=== PATIENT | male | born 1950 | race Caucasian/White ===

== ENCOUNTER 2016-08-31 12:11 | Inpatient (IN) | payer OTHER, MEDICARE ==
[~2016-08-31] VITALS: Ht 177.8 cm; Wt 63.9 kg
[~2016-08-31 12:11] MED LIST: FURO-93 PO; LACT10SO28 PO; MIDO5TAB PO; OMEP-110 PO; PROP20TA PO; SAXA2.5T PO; SODI650T PO; SPIR50TA2 PO; TRAM50TA2 PO; VITA400T6 PO
[2016-08-31] MEDS ORDERED: SODIUM CHLORIDE 0.9% 1,000 ML IV ONE (12:43)
[2016-08-31] MEDS ORDERED: SODIUM CHLORIDE FLUSH 10ML SYR IVF ONE (13:00)
[2016-08-31] MEDS ORDERED: ONDANSETRON 2MG/ML, 2ML IVPush ONE (13:00)
[2016-08-31] MEDS ORDERED: MORPHINE SULFATE 4 MG/ML, 1ML IVPush PRN ×2 (13:00→18:00)
[2016-08-31 13:27] LABS: HEMOGLOBIN 9.3 g/dL (13.7-18.0)
[2016-08-31 13:35] LABS: ASPARTATE AMINO TRANSFERASE 384 U/L (15-37); BLOOD UREA NITROGEN 60 mg/dL (7-18)
[2016-08-31] MEDS ORDERED: VITA400C40 PO (16:20)
[2016-08-31] MEDS ORDERED: MAGN100C2 PO (16:20)
[2016-08-31] MEDS ORDERED: LACTULOSE 20 GM/30 ML UDC PO ONE (17:30)
[2016-08-31] MEDS ORDERED: RIFAXIMIN 550 MG TABLET PO ONE (17:30)
[2016-08-31] MEDS ORDERED: PIPERACILLIN/TAZO/PMX 2.25GM 50 ML IV ONE (17:30)
[2016-08-31] MEDS ORDERED: SODIUM CHLORIDE FLUSH 10ML SYR IVF PRN (17:30)
[2016-08-31] MEDS ORDERED: ONDANSETRON 2MG/ML, 2ML IVP PRN (18:00)
[2016-08-31] MEDS ORDERED: OXYcodone IR 5MG TABLET PO PRN (18:00)
[2016-08-31 20:30] VITALS: BP 90/53
[2016-08-31] MEDS: INSULIN ASPART 100 UNITS/ML, PEN SQ-INSULIN SCH (21:00)
[2016-08-31] MEDS: PIPERACILLIN/TAZO/PMX 2.25GM 50 ML IV SCH (21:37)
[2016-08-31] MEDS: SODIUM CHLORIDE 0.9% 1,000 ML IV SCH (21:37)
[2016-08-31] MEDS: SODIUM BICARBONATE 650 MG TABLET PO SCH (21:39)
[2016-08-31] MEDS: OMEPRAZOLE 20 MG CAPSULE.DR PO SCH (21:39)
[2016-09-01 03:13] VITALS: BP 81/49
[2016-09-01] MEDS: PIPERACILLIN/TAZO/PMX 2.25GM 50 ML IV SCH ×4 (03:13→23:57)
[2016-09-01 05:39] LABS: ASPARTATE AMINO TRANSFERASE 251 U/L (15-37); BLOOD UREA NITROGEN 63 mg/dL (7-18)
[2016-09-01] MEDS: INSULIN ASPART 100 UNITS/ML, PEN SQ-INSULIN SCH ×4 (05:48→23:45)
[2016-09-01 06:35] VITALS: BP 100/65
[2016-09-01 07:03] LABS: HEMOGLOBIN 8.6 g/dL (13.7-18.0)
[2016-09-01] MEDS: SODIUM BICARBONATE 650 MG TABLET PO SCH ×2 (09:47→21:02)
[2016-09-01] MEDS: RIFAXIMIN 550 MG TABLET PO SCH ×2 (09:47→21:02)
[2016-09-01] MEDS: SODIUM CHLORIDE 0.9% 1,000 ML IV SCH (09:48)
[2016-09-01] MEDS: ALBUMIN HUMAN 25% 50 ML IV SCH ×2 (14:09→21:03)
[2016-09-01] MEDS ORDERED: D5%-0.9% NACL 1,000 ML IV SCH (18:30)
[2016-09-01 19:48] VITALS: BP 102/64
[2016-09-01] MEDS: OMEPRAZOLE 20 MG CAPSULE.DR PO SCH (21:02)
[2016-09-01] MEDS: LACTULOSE 10 GM/15 ML UDC PO SCH (23:44)
[2016-09-02] VITALS (13 sets, daily range): BP systolic 93–122; BP diastolic 51–70
[2016-09-02] MEDS: D5%-0.9% NACL 1,000 ML IV SCH (05:07)
[2016-09-02] MEDS: ALBUMIN HUMAN 25% 50 ML IV SCH ×3 (05:08→22:28)
[2016-09-02 05:30] LABS: HEMOGLOBIN 7.3 g/dL (13.7-18.0)
[2016-09-02 05:31] LABS: ASPARTATE AMINO TRANSFERASE 137 U/L (15-37); BLOOD UREA NITROGEN 53 mg/dL (7-18)
[2016-09-02] MEDS: PIPERACILLIN/TAZO/PMX 2.25GM 50 ML IV SCH ×3 (06:50→23:30)
[2016-09-02] MEDS: INSULIN ASPART 100 UNITS/ML, PEN SQ-INSULIN SCH ×4 (08:11→19:53)
[2016-09-02] MEDS: LACTULOSE 10 GM/15 ML UDC PO SCH ×2 (08:11→19:53)
[2016-09-02] MEDS: SODIUM BICARBONATE 650 MG TABLET PO SCH ×2 (08:11→19:55)
[2016-09-02] MEDS: RIFAXIMIN 550 MG TABLET PO SCH ×2 (08:11→19:54)
[2016-09-02] MEDS: OMEPRAZOLE 20 MG CAPSULE.DR PO SCH (19:55)
[2016-09-02] MEDS: MAGNESIUM CHLORIDE 64 MG TABLET.DR PO SCH (22:36)
[2016-09-03] MEDS: PIPERACILLIN/TAZO/PMX 2.25GM 50 ML IV SCH ×4 (00:35→19:14)
[2016-09-03] MEDS: D5%-0.9% NACL 1,000 ML IV SCH (02:42)
[2016-09-03 02:51] VITALS: BP 106/69
[2016-09-03 05:16] LABS: BLOOD UREA NITROGEN 38 mg/dL (7-18)
[2016-09-03 05:19] LABS: ASPARTATE AMINO TRANSFERASE 94 U/L (15-37)
[2016-09-03 05:44] LABS: HEMOGLOBIN 8.8 g/dL (13.7-18.0)
[2016-09-03] MEDS ORDERED: LACTULOSE 10 GM/15 ML UDC PO ONE (07:00)
[2016-09-03 07:45] VITALS: BP 102/63
[2016-09-03] MEDS: MAGNESIUM CHLORIDE 64 MG TABLET.DR PO SCH (08:44)
[2016-09-03] MEDS: INSULIN ASPART 100 UNITS/ML, PEN SQ-INSULIN SCH ×4 (08:44→20:31)
[2016-09-03] MEDS: RIFAXIMIN 550 MG TABLET PO SCH ×2 (08:44→20:31)
[2016-09-03] MEDS: SODIUM BICARBONATE 650 MG TABLET PO SCH ×2 (08:44→20:31)
[2016-09-03] MEDS: LACTULOSE 10 GM/15 ML UDC PO SCH ×2 (12:43→17:43)
[2016-09-03 13:46] VITALS: BP 104/62
[2016-09-03 19:20] VITALS: BP 116/75
[2016-09-03] MEDS: OMEPRAZOLE 20 MG CAPSULE.DR PO SCH (20:31)
[2016-09-03] MEDS: TEMAZEPAM 15 MG CAPSULE PO PRN (20:31)
[2016-09-03] MEDS: LACTULOSE 20 GM/30 ML UDC PO SCH (21:00)
[2016-09-04] MEDS: PIPERACILLIN/TAZO/PMX 2.25GM 50 ML IV SCH ×4 (01:38→19:07)
[2016-09-04 01:43] VITALS: BP 112/62
[2016-09-04 05:11] LABS: ASPARTATE AMINO TRANSFERASE 71 U/L (15-37); BLOOD UREA NITROGEN 28 mg/dL (7-18)
[2016-09-04 07:02] VITALS: BP 104/63
[2016-09-04] MEDS: INSULIN ASPART 100 UNITS/ML, PEN SQ-INSULIN SCH ×4 (08:01→20:59)
[2016-09-04] MEDS: MAGNESIUM CHLORIDE 64 MG TABLET.DR PO SCH (08:02)
[2016-09-04] MEDS: SODIUM BICARBONATE 650 MG TABLET PO SCH ×2 (08:02→20:47)
[2016-09-04] MEDS: RIFAXIMIN 550 MG TABLET PO SCH ×2 (08:02→20:48)
[2016-09-04] MEDS: LACTULOSE 20 GM/30 ML UDC PO SCH (09:00)
[2016-09-04 14:06] VITALS: BP 114/64
[2016-09-04 20:04] VITALS: BP 113/56
[2016-09-04] MEDS: OMEPRAZOLE 20 MG CAPSULE.DR PO SCH (20:47)
[2016-09-04] MEDS ORDERED: LACTULOSE 20 GM/30 ML UDC PO SCH (21:00)
[2016-09-04] MEDS: TEMAZEPAM 15 MG CAPSULE PO PRN (22:19)
[2016-09-05] MEDS: PIPERACILLIN/TAZO/PMX 2.25GM 50 ML IV SCH ×4 (00:52→19:58)
[2016-09-05 02:45] VITALS: BP 105/60
[2016-09-05] MEDS: INSULIN ASPART 100 UNITS/ML, PEN SQ-INSULIN SCH ×4 (07:00→20:14)
[2016-09-05 07:39] VITALS: BP 105/66
[2016-09-05] MEDS: LACTULOSE 20 GM/30 ML UDC PO SCH (08:11)
[2016-09-05] MEDS: MAGNESIUM CHLORIDE 64 MG TABLET.DR PO SCH (08:11)
[2016-09-05] MEDS: RIFAXIMIN 550 MG TABLET PO SCH ×2 (08:12→19:58)
[2016-09-05] MEDS: SODIUM BICARBONATE 650 MG TABLET PO SCH ×2 (08:12→19:58)
[2016-09-05 13:21] VITALS: BP 106/64
[2016-09-05 18:43] VITALS: BP 120/71
[2016-09-05] MEDS: OMEPRAZOLE 20 MG CAPSULE.DR PO SCH (19:58)
[2016-09-05] MEDS: TEMAZEPAM 15 MG CAPSULE PO PRN (22:01)
[2016-09-06] MEDS: PIPERACILLIN/TAZO/PMX 2.25GM 50 ML IV SCH ×4 (01:35→19:39)
[2016-09-06 01:58] VITALS: BP 112/68
[2016-09-06 05:07] LABS: HEMOGLOBIN 9.1 g/dL (13.7-18.0)
[2016-09-06 05:12] LABS: BLOOD UREA NITROGEN 33 mg/dL (7-18)
[2016-09-06 05:15] LABS: ANISOCYTOSIS 1+; ASPARTATE AMINO TRANSFERASE 54 U/L (15-37)
[2016-09-06 05:16] LABS: OVALOCYTES 1+; POIKILOCYTOSIS 1+
[2016-09-06 08:15] VITALS: BP 102/61
[2016-09-06] MEDS: INSULIN ASPART 100 UNITS/ML, PEN SQ-INSULIN SCH ×4 (08:46→21:19)
[2016-09-06] MEDS: MAGNESIUM CHLORIDE 64 MG TABLET.DR PO SCH (08:48)
[2016-09-06] MEDS: SODIUM BICARBONATE 650 MG TABLET PO SCH ×2 (08:48→19:39)
[2016-09-06] MEDS: LACTULOSE 20 GM/30 ML UDC PO SCH ×2 (08:48→19:41)
[2016-09-06] MEDS: RIFAXIMIN 550 MG TABLET PO SCH ×2 (08:49→19:39)
[2016-09-06] MEDS ORDERED: FUROSEMIDE 20 MG TABLET PO SCH (09:00)
[2016-09-06] MEDS ORDERED: FUROSEMIDE 20 MG TABLET PO ONE (11:00)
[2016-09-06 14:00] VITALS: BP 104/65
[2016-09-06] MEDS: MIDODRINE 5 MG TABLET PO SCH ×2 (16:34→19:41)
[2016-09-06 19:12] VITALS: BP 102/63
[2016-09-06] MEDS: OMEPRAZOLE 20 MG CAPSULE.DR PO SCH (19:39)
[2016-09-06] MEDS: ALBUMIN HUMAN 25% 100 ML IV SCH (21:19)
[2016-09-06] MEDS: TEMAZEPAM 15 MG CAPSULE PO PRN (22:21)
[2016-09-07] MEDS: PIPERACILLIN/TAZO/PMX 2.25GM 50 ML IV SCH ×3 (00:38→14:44)
[2016-09-07 01:45] VITALS: BP 98/59
[2016-09-07 05:17] LABS: HEMOGLOBIN 8.1 g/dL (13.7-18.0)
[2016-09-07 05:24] LABS: ASPARTATE AMINO TRANSFERASE 48 U/L (15-37); BLOOD UREA NITROGEN 36 mg/dL (7-18)
[2016-09-07 05:37] LABS: ANISOCYTOSIS 1+; OVALOCYTES 1+; POIKILOCYTOSIS 1+
[2016-09-07] MEDS: ALBUMIN HUMAN 25% 100 ML IV SCH ×4 (05:39→16:34)
[2016-09-07] MEDS: INSULIN ASPART 100 UNITS/ML, PEN SQ-INSULIN SCH ×3 (07:00→16:00)
[2016-09-07 08:00] VITALS: BP 102/60
[2016-09-07] MEDS ORDERED: SODIUM BICARBONATE 4.2%, 5ML ONE (08:14)
[2016-09-07] MEDS ORDERED: LIDOCAINE 1%, 20ML ONE (08:14)
[2016-09-07] MEDS: SODIUM BICARBONATE 650 MG TABLET PO SCH (08:18)
[2016-09-07] MEDS: MAGNESIUM CHLORIDE 64 MG TABLET.DR PO SCH (08:18)
[2016-09-07] MEDS: MIDODRINE 5 MG TABLET PO SCH ×2 (08:19→16:00)
[2016-09-07] MEDS: RIFAXIMIN 550 MG TABLET PO SCH (08:20)
[2016-09-07] MEDS ORDERED: FUROSEMIDE 20 MG TABLET PO SCH (09:00)
[2016-09-07] MEDS ORDERED: PROPRANOLOL 20 MG TABLET PO SCH (09:00)
[2016-09-07] MEDS: LACTULOSE 20 GM/30 ML UDC PO SCH (11:17)
[2016-09-07] MEDS ORDERED: RIFA550T PO (13:35)
[2016-09-07] MEDS ORDERED: TEMA15CA6 PO (13:37)
[2016-09-07 14:30] VITALS: BP 113/72
== END 2016-09-07 18:18 | disposition home or self-care (01) | DRG 871 ==
LOC: ED 13:50 → EDIP 17:25 → 3NE 18:39
PROVIDERS: ADMIT Internal Medicine; ATTEND Internal Medicine
PROC: 0T9B70Z Drainage of Bladder with Drainage Device, Via Natural or Artificial Opening (ICD-10-PCS; 2016-08-31)
PROC: 0W9G3ZZ Drainage of Peritoneal Cavity, Percutaneous Approach (ICD-10-PCS; 2016-09-01)
PROC: 30233N1 Transfusion of Nonautologous Red Blood Cells into Peripheral Vein, Percutaneous Approach (ICD-10-PCS; principal; 2016-09-02)
PROC: 0W9G3ZZ Drainage of Peritoneal Cavity, Percutaneous Approach (ICD-10-PCS; 2016-09-07)
DX: A41.9 Sepsis, unspecified organism (principal); E43 Unspecified severe protein-calorie malnutrition; G93.41 Metabolic encephalopathy; K72.00 Acute and subacute hepatic failure without coma; K76.7 Hepatorenal syndrome; E87.1 Hypo-osmolality and hyponatremia; N17.9 Acute kidney failure, unspecified; R18.8 Other ascites; D68.59 Other primary thrombophilia; D63.8 Anemia in other chronic diseases classified elsewhere; K74.3 Primary biliary cirrhosis; K75.81 Nonalcoholic steatohepatitis (NASH); D69.6 Thrombocytopenia, unspecified; E11.22 Type 2 diabetes mellitus with diabetic chronic kidney disease; I12.9 Hypertensive chronic kidney disease with stage 1 through stage 4 chronic kidney disease, or unspecified chronic kidney disease; N18.9 Chronic kidney disease, unspecified; D50.9 Iron deficiency anemia, unspecified; Z51.5 Encounter for palliative care; Z66 Do not resuscitate; E87.70 Fluid overload, unspecified; E87.5 Hyperkalemia; Z98.890 Other specified postprocedural states; Z79.899 Other long term (current) drug therapy; Z68.20 Body mass index [BMI] 20.0-20.9, adult
CPT/HCPCS: 36415; 49083; 71010; 74176; 80053; 80061; 81003; 82042; 82140; 82945; 82962; 83036; 83605; 83615; 83690; 83735; 83986; 84100; 84132; 84157; 84439; 84443; 85025; 85610; 85730; 86850; 86900; 86923; 87040; 87070; 87075; 87205; 88112; 88305; 89051; 99285; J1815; J2543; J3490; J7042; P9047; J7030; P9016

== ENCOUNTER → 2016-09-26 | Outpatient (CLI) | payer OTHER, MEDICARE ==
[~2016-09-26] MED LIST changes: +ALBUMIN HUMAN 25%, 25GM/100ML ONE; +LIDOCAINE 2%, 20ML ONE; +MAGN100C2 PO; +RIFA550T PO; +SODIUM BICARBONATE 4.2%, 5ML ONE; +TEMA15CA6 PO; +VITA400C40 PO
== END | disposition home or self-care (01) ==
LOC: RAD 10:48
PROVIDERS: ATTEND Internal Medicine
DX: R18.8 Other ascites (principal); K74.69 Other cirrhosis of liver
CPT/HCPCS: 49083; J3490; P9047